=== PATIENT | male | born 1940 | race Caucasian/White ===

== ENCOUNTER → 2021-12-10 | Outpatient (CLI) | payer MEDICARE, BC ==
[~2021-12-10] MED LIST: ASPIRIN E.C. 8181 MG PO; GLUCOPHAGE1000 MG PO; GLUCOTROL XL5 MG/TAB PO; JANUVIA50 MG PO; PRINIVIL10 MG PO; ZOCOR 40MG40 MG PO
== END ==
LOC: COL.RAD 11:48
DX: C61 Malignant neoplasm of prostate (principal); C79.51 Secondary malignant neoplasm of bone; G89.3 Neoplasm related pain (acute) (chronic); Z79.899 Other long term (current) drug therapy